=== PATIENT | female | born 1955 | race Caucasian/White ===

== ENCOUNTER → 2024-05-23 | Outpatient (CLI) | payer OTHER, MEDICARE, SELFPAY ==
--- NOTE | 2024-05-23 14:05 | DI.MG.S_ITS ---
BILATERAL DIGITAL SCREENING MAMMOGRAM 3D/2D WITH CAD: 05/23/2024 No prior exams were available for comparison. There are scattered areas of fibroglandular density (category b / 25%-50% glandular tissue). Current study was also evaluated with a Computer Aided Detection (CAD) system. There is an oval focal asymmetry in the right breast at 8 o'clock posterior depth. No other significant masses, calcifications, or other findings are seen in either breast. IMPRESSION: INCOMPLETE: NEED ADDITIONAL IMAGING EVALUATION The oval focal asymmetry in the right breast is indeterminate. Additional views with possible ultrasound are recommended. Based on the Tyrer Cuzick model (a risk assessment model) the patient's lifetime risk is 4.4% and her 10 year risk is 2.6%. According to the ACR, ACS, and NCCN guidelines, an annual breast MRI exam along with mammogram is recommended if the patient's lifetime risk is 20% or greater. This exam was interpreted at Station ID: [id number]. NOTE: For mammograms, a report in lay terms will be sent to the patient. Approximately 15% of breast malignancies will not be visualized mammographically. In the management of a palpable breast mass, a negative mammogram must not discourage biopsy of a clinically suspicious lesion. Electronically Signed By: Bala ramos/tam:06/09/2024 11:26:36 letter sent: Additional Imaging Needed ACR BI-RADS Category 0: Incomplete: Need Additional Imaging Evaluation
== END ==
LOC: MAMMO 14:04
PROVIDERS: PCP Family Medicine; Referring Provider Family Medicine; Visit Provider Family Medicine
DX: Z12.31 Encounter for screening mammogram for malignant neoplasm of breast (principal)
CPT/HCPCS: 77063; 77067

== ENCOUNTER → 2024-06-27 13:17 | Outpatient (CLI) | payer OTHER, SELFPAY ==
--- NOTE | 2024-06-27 | DI.US.S_ITS ---
LIMITED ULTRASOUND OF RIGHT BREAST: 06/27/2024 CLINICAL: Patient returns today to evaluate a focal asymmetry in the right breast. Comparison is made to exams dated: 06/27/2024 mammogram and 05/23/2024 mammogram - [facility]. Color flow and real-time ultrasound of the right breast 10 o'clock region were performed. [place] scale images of the real-time examination were reviewed. There is a benign 0.7 cm x 0.5 cm x 0.2 cm oval cyst in the right breast at 10 o'clock posterior depth 10 cm from the nipple. This oval cyst is anechoic with internal echoes. This correlates with mammography findings. Color flow imaging demonstrates that there is no vascularity present. IMPRESSION: BENIGN There is no sonographic evidence of malignancy. The 0.7 cm oval cyst in the right breast is benign. A 1 year screening mammogram is recommended. Exam findings were conveyed to the patient. This exam was interpreted at Station ID: [id number]. Electronically Signed By: Ivan Figueroa M.D. [facility] – [place], [place]/:06/27/2024 14:38:28 letter sent: Normal Exam ACR BI-RADS Category 2: Benign
--- NOTE | 2024-06-27 | DI.MG.S_ITS ---
UNILATERAL RIGHT DIGITAL DIAGNOSTIC MAMMOGRAM 3D/2D WITH ADDITIONAL VIEWS: 06/27/2024 CLINICAL: Additional evaluation requested from prior study. Comparison is made to exam dated: 05/23/2024 mammogram - [facility]. There are scattered areas of fibroglandular density (category b / 25%-50% glandular tissue). There is an oval focal asymmetry in the right breast at 9 o'clock posterior depth. No other significant masses or calcifications are seen in the breast. IMPRESSION: INCOMPLETE: NEED ADDITIONAL IMAGING EVALUATION The oval focal asymmetry in the right breast is indeterminate. A targeted ultrasound is recommended and will immediately follow. Based on the Tyrer Cuzick model (a risk assessment model) the patient's lifetime risk is 4.4% and her 10 year risk is 2.6%. According to the ACR, ACS, and NCCN guidelines, an annual breast MRI exam along with mammogram is recommended if the patient's lifetime risk is 20% or greater. This exam was interpreted at Station ID: [id number]. NOTE: For mammograms, a report in lay terms will be sent to the patient. Approximately 15% of breast malignancies will not be visualized mammographically. In the management of a palpable breast mass, a negative mammogram must not discourage biopsy of a clinically suspicious lesion. Electronically Signed By: Ivan Figueroa M.D. [facility] – [place]/:06/27/2024 13:49:40 Entry: - 06/28/2024 15:23:36 letter sent: Need Ultrasound ACR BI-RADS Category 0: Incomplete: Need Additional Imaging Evaluation
== END ==
LOC: MAMMO 13:18
PROVIDERS: PCP Family Medicine; Referring Provider Family Medicine; Visit Provider Family Medicine
DX: R92.8 Other abnormal and inconclusive findings on diagnostic imaging of breast (principal); N60.01 Solitary cyst of right breast
CPT/HCPCS: 76642; 77065; G0279

== ENCOUNTER → 2024-08-17 10:35 | Outpatient (CLI) | payer OTHER, SELFPAY ==
[2024-08-17 11:49] LABS: COVID-19 CEPHEID 4-PLEX PCR Negative (Negative); Influenza A - CEPHEID Flu A NEGATIVE (NEGATIVE); Influenza B - CEPHEID Flu B NEGATIVE (NEGATIVE); Respiratory Syncytial Virus Negative (Negative)
== END ==
PROVIDERS: PCP Family Medicine; Visit Provider Physician Assistant
DX: R05.1 Acute cough (principal); J02.9 Acute pharyngitis, unspecified
CPT/HCPCS: 0241U; 87070

== ENCOUNTER 2024-11-14 02:38 | Emergency (ER) | payer MEDICARE, OTHER, SELFPAY ==
[2024-11-14] VITALS (10 sets, daily range): BP systolic 155–217; BP diastolic 69–95; PULSE 57–94; RESP 11–35; TEMP 36.7; O2SAT 95–98; BMI 32.5
--- NOTE | 2024-11-14 02:46 | EKG_ITS ---
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
--- NOTE | 2024-11-14 02:59 | DI.RAD.S_ITS ---
PROCEDURE: XR CHEST 1V INDICATIONS: chest pain TECHNIQUE: One view of the chest was acquired. COMPARISON: None. FINDINGS: Surgical changes and devices: None. Lungs and pleura: Lungs are clear. No pleural effusions or pneumothorax. Mediastinum: Mediastinal contours appear normal. Heart size is enlarged. Bones and chest wall: No suspicious bony lesions. Overlying soft tissues appear unremarkable. IMPRESSION: No acute pulmonary process. Dictated by: Jen Carpio M.D. on 11/14/2024 at 7:29 Approved by: Jen Carpio M.D. on 11/14/2024 at 7:29
[2024-11-14 03:05] LABS: Add Manual Diff / Slide Review NO; Basophils Absolute Auto 100 /uL (0-100); Basophils Percent Auto 1.1 % (0-2); Eosinophils Absolute Auto 200 /uL (0-450); Eosinophils Percent Auto 3.8 % (2-4); Hemoglobin 11.9 g/dL (12.0-16.0); Lymphocytes Absolute Auto 2400 /uL (1100-4500); Lymphocytes Percent Auto 38.1 % (25-40); Mean Corpuscular Hemoglobin 29.7 PG (26-34); Mean Corpuscular Volume 90.3 fL (80-100); Monocytes Absolute Auto 400 /uL (0-900); Neutrophils Absolute Auto 3300 /uL (1500-7000); Platelet Count 236 X10^3/uL (150-400); Red Blood Cell Count 3.99 X10^6/uL (4.0-5.2); Red Cell Distribution Width 14.1 % (11.6-14.8); White Blood Cell Count 6.4 X10^3/uL (4.5-11.0)
[2024-11-14] MEDS: ASPIRIN 81 MG CHEW TAB 324 MG PO (03:12)
[2024-11-14 03:13] LABS: Alanine Aminotransferase 22 IU/L (<35); Albumin Globulin Ratio 1.4 (1.0-2.8); Alkaline Phosphatase 122 U/L (38-126); Aspartate Aminotransferase 31 IU/L (14-36); BUN Creatinine Ratio 23.4 (6-22); Bilirubin Total 0.4 mg/dL (0.2-1.3); Blood Urea Nitrogen 25 mg/dL (7-17); Calcium 8.6 mg/dL (8.4-10.2); Carbon Dioxide 24 mmol/L (22-32); Chloride 110 mmol/L (98-107); Creatine Kinase 66 U/L (30-135); Estimated Glomerular Filt Rate 56 mL/min (>60); Globulin 2.8 g/dL (1.7-4.1); Glucose 99 mg/dL (80-110); HEMOLYSIS < 15 (0-50); Lipase 121 U/L (23-300); Potassium 3.9 mmol/L (3.4-5.1); Sodium 140 mmol/L (137-145); Total Protein 6.8 g/dL (6.3-8.2)
[2024-11-14 03:25] LABS: Troponin I < 0.012 ng/mL (0.01-0.034)
--- NOTE | 2024-11-14 04:24 | ED.CHESTPAIN ---
HPI - Chest Pain General Chief Complaint: Chest Pain Stated Complaint: slight chest pain and left arm pain Time Seen by Provider: 11/14/24 02:50 Source: patient Mode of arrival: Ambulatory Limitations: no limitations History of Present Illness HPI narrative: Patient is a 69-year-old female history of atrial fibrillation on Eliquis and flecainide, hypothyroid hypertension GERD kidney mass kidney stones sending today with chest pain. Reports that yesterday she was noticing some sharp stabbing left-sided chest pain down the her breast. It came and went lasting only seconds. Tonight she has been noticing some left arm heaviness and achiness. Still having some sharp shooting pains in her chest as well no significant shortness of breath. Pain is not radiating. She has no prior history of coronary artery disease. Related Data Home Medications Medication Instructions Recorded Confirmed azelastine 137 mcg (0.1 %) nasal 1 spray intranasal BID 02/04/24 09/14/24 spray calcium carbonate 260 mg PO DAILY 02/04/24 09/14/24 cholecalciferol (vitamin D3) 50 50 mcg PO DAILY 02/04/24 09/14/24 mcg (2,000 unit) capsule inulin 2 gram chewable tablet g PO 02/04/24 09/14/24 (Fiber Gummies) multivitamin with minerals-folic tab PO 02/04/24 09/14/24 acid 200 mcg chewable tablet (Adult Multivitamin Gummies) Previous Rx's Medication Instructions Recorded lidocaine 4 % topical patch 1 patch topical BID PRN pain #10 ea 04/10/23 metoprolol succinate 25 mg 25 mg PO DAILY #90 tabs 06/13/24 tablet,extended release 24 hr sumatriptan succinate 50 mg tablet See Rx Instructions PO .COMPLEX 06/13/24 #90 tabs topiramate 25 mg capsule,extended 25 mg PO DAILY #90 caps 06/13/24 release 24 hr atorvastatin 20 mg tablet 20 mg PO BEDTIME #90 tabs 07/11/24 levothyroxine 88 mcg tablet 88 mcg PO DAILY #90 tabs 07/11/24 fluticasone propionate 50 1 spray intranasal DAILY #16 grams 08/17/24 mcg/actuation nasal spray,suspension (Flonase Allergy Relief) guaifenesin 1,200 mg tablet, 1,200 mg PO Q12H #30 tabs 08/17/24 extended release 12 hr lisinopril 40 mg tablet 40 mg PO DAILY #90 tabs 11/07/24 omeprazole 40 mg capsule,delayed 40 mg PO DAILY #90 caps 11/07/24 release paroxetine HCl 20 mg tablet 20 mg PO DAILY #90 tabs 11/07/24 trazodone 50 mg tablet 50 mg PO BEDTIME PRN insomnia #90 11/07/24 tabs apixaban 5 mg tablet (Eliquis) 5 mg PO BID #180 tabs 11/10/24 flecainide 50 mg tablet 50 mg PO Q12H #180 tabs 11/10/24 Allergies Allergy/AdvReac Type Severity Reaction Status Date / Time No Known Drug Allergies Allergy Unverified 09/14/24 12:53 Patient History Social History Smoking Status: Never smoker Smoking Status: Never smoker Exam Initial Vital Signs Initial Vital Signs: Vital Signs Temperature 98.1 F 11/14/24 02:52 Pulse Rate 62 11/14/24 02:52 Respiratory Rate 19 11/14/24 02:52 Blood Pressure 217/95 H 11/14/24 02:52 Pulse Oximetry 98 11/14/24 02:52 Oxygen Delivery Method Room Air 11/14/24 02:52 GENERAL: Well-appearing, well-nourished and in no acute distress. HEENT: Head atraumatic,EOMI, pupils reactive, face symmetric, moist mucous membranes CARDIOVASCULAR: Regular rate and rhythm without murmurs, rubs or gallops. RESPIRATORY: Breath sounds equal bilaterally, no wheezes rales or rhonchi. ABDOMEN: Soft, nontender. Normoactive bowel sounds all 4 quadrants. No guarding or rebound. EXTREMITIES: Normal range of motion, no clubbing or edema. Neurovascularly intact NEUROLOGICAL: Alert and oriented x4.Normal gait and speech. Cranial nerves II through XII grossly intact. SKIN: Warm, dry, no laceration, no petechiae, no rashes or lesions. Scores HEART Score Heart Score history: Slightly Suspicious Heart Score EKG: Normal Heart Score Age: > or = 65 years old Heart Score risk factors: 1-2 risk factors Heart Score troponin: < or = to normal limit Heart Score Total: 3 Course Orders Ordered: ED Orders 11/14/24 02:47 EKG-12 Lead Stat 11/14/24 02:54 Complete Blood Count AUTO DIFF Stat Comprehensive Metabolic Panel Stat Lipase Stat Troponin & CK Cardiac Panel Stat 11/14/24 02:59 XR chest 1V Stat EKG-12 Lead Stat 11/14/24 04:55 Trop I [Troponin I] Stat 11/14/24 05:00 EKG-12 Lead Stat 11/14/24 05:04 EKG-12 Lead Routine Discontinued Medications Aspirin (Aspirin 81 Mg Chew Tab) 324 mg PO NOW ONE Stop: 11/14/24 03:00 Last Admin: 11/14/24 03:12 Dose: 324 mg Documented By: ELIU Vital Signs Vital signs: Vital Signs - 8 hr 11/14/24 02:52 11/14/24 03:00 11/14/24 03:01 Temperature 98.1 F Pulse Rate 62 58 L 59 L Respiratory Rate 19 11 L 13 Blood Pressure 217/95 H Pulse Oximetry 98 98 98 Oxygen Delivery Method Room Air 11/14/24 03:01 11/14/24 03:30 11/14/24 03:46 Temperature Pulse Rate 94 H 61 Respiratory Rate 35 H 11 L Blood Pressure 207/80 H Pulse Oximetry 97 Oxygen Delivery Method 11/14/24 03:46 11/14/24 04:00 11/14/24 04:01 Temperature Pulse Rate 57 L Respiratory Rate 16 Blood Pressure 183/85 H 179/77 H Pulse Oximetry 96 Oxygen Delivery Method Room Air 11/14/24 04:01 11/14/24 04:30 11/14/24 04:31 Temperature Pulse Rate 57 L 58 L 57 L Respiratory Rate 13 13 14 Blood Pressure Pulse Oximetry 97 95 95 Oxygen Delivery Method Room Air Room Air 11/14/24 04:31 11/14/24 05:00 11/14/24 05:00 Temperature Pulse Rate 59 L Respiratory Rate 19 Blood Pressure 155/69 H 171/84 H Pulse Oximetry 96 Oxygen Delivery Method MDM - Chest Pain Lab Data 11/14/24 02:54 11/14/24 02:54 Labs: Lab Results 11/14/24 11/14/24 Range/Units 02:54 04:55 WBC 6.4 (4.5-11.0) X10^3/uL RBC 3.99 L (4.0-5.2) X10^6/uL Hgb 11.9 L (12.0-16.0) g/dL Hct 36.0 (36-46) % MCV 90.3 (80-100) fL MCH 29.7 (26-34) PG MCHC 33.0 (30-36) % RDW 14.1 (11.6-14.8) % Plt Count 236 (150-400) X10^3/uL Neut % (Auto) 51.0 (50-75) % Lymph % (Auto) 38.1 (25-40) % [place] % (Auto) 6.0 (3-14) % Eos % (Auto) 3.8 (2-4) % Baso % (Auto) 1.1 (0-2) % Neut # (Auto) 3300 (9681-2221) /uL Lymph # (Auto) 2400 (8154-3647) /uL [place] # (Auto) 400 (0-900) /uL Eos # (Auto) 200 (0-450) /uL Baso # (Auto) 100 (0-100) /uL Sodium 140 (137-145) mmol/L Potassium 3.9 (3.4-5.1) mmol/L Chloride 110 H (98-107) mmol/L Carbon Dioxide 24 (22-32) mmol/L BUN 25 H (7-17) mg/dL Creatinine 1.07 H (0.52-1.04) mg/dL Estimated GFR 56 L (>60) mL/min BUN/Creatinine Ratio 23.4 H (6-22) Glucose 99 (80-110) mg/dL Calcium 8.6 (8.4-10.2) mg/dL Total Bilirubin 0.4 (0.2-1.3) mg/dL AST 31 (14-36) IU/L ALT 22 (<35) IU/L Alkaline Phosphatase 122 (38-126) U/L Total Creatine Kinase 66 (30-135) U/L Troponin I < 0.012 < 0.012 (0.01-0.034) ng/mL Total Protein 6.8 (6.3-8.2) g/dL Albumin 4.0 (3.5-5.0) g/dL Globulin 2.8 (1.7-4.1) g/dL Albumin/Globulin Ratio 1.4 (1.0-2.8) Lipase 121 (23-300) U/L Imaging Data Chest x-ray: Radiologist's Impression: Preliminary report no acute finding ECG Data Attestation: I personally reviewed and interpreted this ECG as follows: Prior ECG tracings: not available for review Interpretation: Normal sinus rhythm rate 61 TX interval 198 QRS 114 QTC 434 T-wave inversion early Sinus rhythm rate 60 T-wave inversion noted in lead 3 no acute changes MDM Narrative Medical decision making narrative: MDM CC: Chest pain Complicating co-morbidities: Paroxysmal atrial fibrillation on Eliquis and flecainide hypertension Corroborating data: [ ] Data collected from: [ ] Medical records reviewed: none Differential considered: Acute coronary syndrome atrial fibrillation Exam documented above, pertinent findings include: Awake alert 69-year-old female no acute distress pain is nonreproducible Lab Test results independently reviewed as above. Pertinent findings: Troponin negative x 2 WBC 6.4 hemoglobin 11.9 hematocrit 36 Sodium 140 potassium 3.9 chloride 110 carbon dioxide 24 BUN 25 creatinine 1.0 Liver enzymes bilirubin within normal limits Independently reviewed EKG as above No priors to compare Imaging studies independently reviewed: no acute cardiopulmonary process Consultations: [ ] Treatments: none Re-evaluations: Patient continues to have intermittent chest pain lasting 1-2 minutes and resolving. Discussion: Patient 69-year-old female presenting today with chest. She was having sharp shooting pain lasting seconds and now it is her left arm that she feels some heaviness lasting a minute or 2. No significant shortness of breath. She is 2- troponins and negative chest x-ray. No prior EKGs to compare she has no acute ischemia. At this time recommend outpatient follow-up and further cardiac evaluation and return as needed Discharge Plan Departure Patient Disposition: Home Clinical Impression: Atypical chest pain Instructions: DI for Atypical Chest Pain Activity Restrictions/Additional Instructions: *You have been diagnosed with atypical chest *What to do: At this time your chest pain is atypical. I do recommend that you have an outpatient cardiac evaluation such as echocardiogram and stress test. We are unable to do these things in the emergency department *Continue to take medications as directed *Follow up with your primary care provider in 2-3 days or call [phone] *Return to ER if you should have increasing chest discomfort shortness of breath arm pain jaw pain back pain or any new, worsening or concerning symptoms Prescriptions: No Action lidocaine 4 % adhesive patch,medicated 1 patch topical BID PRN (Reason: pain) Qty: 10 0RF guaifenesin 1,200 mg tablet extended release 12hr 1,200 mg PO Q12H Qty: 30 0RF fluticasone propionate [Flonase Allergy Relief] 50 mcg/actuation spray,suspension 1 spray intranasal DAILY Qty: 16 2RF Rx Instructions: administer into each nostril metoprolol succinate 25 mg tablet extended release 24 hr 25 mg PO DAILY Qty: 90 3RF topiramate 25 mg capsule,extended release 24hr 25 mg PO DAILY Qty: 90 3RF sumatriptan succinate 50 mg tablet See Rx Instructions PO .COMPLEX Qty: 90 3RF Rx Instructions: take 1 tab at onset of headache; if no relief may repeat 1 tab after at least 2 hrs; max = 4 tabs/24 hr PO levothyroxine 88 mcg tablet 88 mcg PO DAILY Qty: 90 3RF atorvastatin 20 mg tablet 20 mg PO BEDTIME Qty: 90 3RF paroxetine HCl 20 mg tablet 20 mg PO DAILY Qty: 90 0RF omeprazole 40 mg capsule,delayed release(DR/EC) 40 mg PO DAILY Qty: 90 0RF lisinopril 40 mg tablet 40 mg PO DAILY Qty: 90 0RF trazodone 50 mg tablet 50 mg PO BEDTIME PRN (Reason: insomnia) Qty: 90 0RF flecainide 50 mg tablet 50 mg PO Q12H Qty: 180 3RF Eliquis 5 mg tablet 5 mg PO BID Qty: 180 3RF azelastine 137 mcg (0.1 %) aerosol,spray 1 spray intranasal BID Rx Instructions: administer into each nostril cholecalciferol (vitamin D3) 50 mcg (2,000 unit) capsule 50 mcg PO DAILY calcium carbonate 260 mg calcium (648 mg) tablet 260 mg PO DAILY multivit with min-folic acid [Adult Multivitamin Gummies] 200 mcg tablet,chewable PO Fiber Gummies 2 gram tablet,chewable PO Referrals: Haylee Roberts DO [Primary Care Provider] - Stand Alone Forms: Patient Portal/API/Survey
--- NOTE | 2024-11-14 05:04 | EKG_ITS ---
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
[2024-11-14 05:27] LABS: Troponin I < 0.012 ng/mL (0.01-0.034)
== END 2024-11-14 05:53 | disposition home or self-care (01) ==
PROVIDERS: Emergency Provider Emergency Medicine; PCP Family Medicine
DX: R07.89 Other chest pain (principal); I49.8 Other specified cardiac arrhythmias
CPT/HCPCS: 36415; 71045; 80053; 82550; 83690; 84484; 85025; 93005; 99284

== ENCOUNTER → 2024-11-23 10:59 | Outpatient (CLI) | payer MEDICARE, OTHER, SELFPAY ==
[2024-11-23 12:41] LABS: TSH w/ Reflex to FT4 9.49 uIU/mL (0.47-4.68)
[2024-11-23 13:37] LABS: Free T4, Direct Thyroxine 1.22 ng/dL (0.78-2.19)
== END ==
PROVIDERS: PCP Family Medicine; Referring Provider Family Medicine; Visit Provider Family Medicine
DX: E03.9 Hypothyroidism, unspecified (principal); R07.89 Other chest pain
CPT/HCPCS: 36415; 84439; 84443

== ENCOUNTER → 2024-11-30 08:07 | Outpatient (CLI) | payer OTHER, SELFPAY ==
--- NOTE | 2024-11-30 18:01 | DI.NM.S_ITS ---
DATE OF SERVICE: 11/30/2024 PROCEDURE: Exercise stress test. INDICATIONS: Chest pain, hypertension, hyperlipidemia. CARDIAC STRESS: The patient underwent exercise stress test under the supervision of an attending staff. She walked on Samuel protocol for 4 minutes and 27 seconds and the patient achieved maximum heart rate 118, which was 78% of target heart rate. Resting blood pressure 150/68 and peak blood pressure 180/98 mmHg. Baseline rhythm sinus with some ST flattening in inferolateral leads. During stress, significant artifacts. Difficult to comment upon ST-segment. However, in the immediate recovery, there was no significant ST depression. Then in recovery, the patient developed PVCs including ventricular quadrigeminy pattern which lasted for short duration. No ventricular tachycardia. In 3 minutes into the recovery, there was 0.[address] depression in inferior leads and leads V5 to V6, which got subsided in 5 minutes in recovery. The patient developed dyspnea and pleuritic type of chest pain during exercise, which got improved in recovery. XUAN positive 31%, seven METS of workload. CONCLUSION: This is a submaximal exercise stress test. The patient achieved 78% of target heart rate. There is 0.[address]-segment depression in inferior leads and leads V5 and V6 , which appeared around 3 minutes into the recovery and subsided in 5 minutes. Stress EKG was un interpretable. Frequent PVCs in recovery with ventricular quadrigeminy pattern without any ventricular tachycardia. The patient had pleuritic type of chest pain and dyspnea during exercise. This is an inconclusive study for CAD diagnosis and risk stratification. Please consider repeating stress test with imaging modality like exercise perfusion study or exercise stress echo. Ellie Gonzales - JUDITH/concetta/JORDI doc#: [id number]/job#: [id number] dd: 11/30/2024 17:07:00 dt: 11/30/2024 17:35:00 DICTATING MD/COPIES TO: [place] MD COPIES MNE: MINDI;
== END ==
PROVIDERS: PCP Family Medicine; Referring Provider Family Medicine; Visit Provider Family Medicine
DX: R07.89 Other chest pain (principal)
CPT/HCPCS: 93017

== ENCOUNTER → 2025-01-17 15:04 | Outpatient (CLI) | payer OTHER, SELFPAY ==
[2025-01-17 15:43] LABS: Estimated Glomerular Filt Rate 55 mL/min (>60)
[2025-01-17 16:41] LABS: Thyroid Stimulating Hormone 1.79 uIU/mL (0.47-4.68)
== END ==
LOC: LAB 15:04
PROVIDERS: Radiology Diagnostic Radiology; PCP Family Medicine; Referring Provider Family Medicine; Visit Provider Family Medicine
DX: R31.29 Other microscopic hematuria (principal); E03.9 Hypothyroidism, unspecified
CPT/HCPCS: 36415; 82565; 84443

== ENCOUNTER → 2025-02-09 13:49 | Outpatient (CLI) | payer OTHER, SELFPAY ==
[2025-02-09 14:52] LABS: Estimated Glomerular Filt Rate 52 mL/min (>60)
== END ==
PROVIDERS: Family Provider Family Medicine; PCP Family Medicine; Visit Provider Radiology Diagnostic Radiology
DX: N28.89 Other specified disorders of kidney and ureter (principal)
CPT/HCPCS: 36415; 82565

== ENCOUNTER → 2025-02-12 11:08 | Outpatient (CLI) | payer OTHER, SELFPAY ==
--- NOTE | 2025-02-12 11:10 | DI.CT.S_ITS ---
PROCEDURE: CT ABDOMEN RENAL PROTOCOL INDICATIONS: hx rt renal mass,disorders of kidney and ureter TECHNIQUE: Optional 5 mm thick noncontrast images acquired from the diaphragm to the iliac crests. After the administration of intravenous contrast, 5 mm thick images again acquired from the diaphragm to the iliac crests in the arterial and urographic phases. 5 mm thick coronal and sagittal reformats were then acquired. For radiation dose reduction, the following was used: automated exposure control, adjustment of mA and/or kV according to patient size. COMPARISON: Outside Facility, CT, CT IVP A/P W/WO, 02/29/2024, 9:17. FINDINGS: Image quality: Diagnostic. Kidneys and Ureters: Posttreatment changes on the posterior margin of the right kidney. The treatment bed has a targetoid appearance, with central enhancing soft tissue . This region measures approximately 1.0 x 1.4 centimeter. A couple of nonobstructing right-sided nephrolithiasis, largest measuring 7 millimeter, the remainder of punctate. Small burden of punctate, nonobstructing left-sided nephrolithiasis. OTHER: Lower chest: Unremarkable. Liver: No solid mass. Gallbladder: Absent. Biliary ducts: No biliary dilation. Pancreas: No ductal dilation. Spleen: Size is within normal limits. Adrenal Glands: No adrenal nodules. Stomach and Bowel: Normal colonic caliber, without significant wall thickening. Gastric bypass. Peritoneum: No abnormal intraperitoneal fluid. No free air. Ventral Wall: No hernia. Abdominal Nodes: No retroperitoneal or mesenteric adenopathy by size criteria. Vessels: Aorta and inferior vena cava are normal in size. 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 Bones: No aggressive osseous abnormality. IMPRESSION: Posttreatment changes along the posterior margin of the right kidney, normal in appearance status post cryoablation, with a central enhancing scar. Stable 1.3 centimeter splenic artery aneurysm. Yearly follow-up with CTA is recommended per consensus guidelines. Dictated by: Bear [place] M.D. on 02/12/2025 at 14:30 Approved by: Bear [place] M.D. on 02/12/2025 at 14:35
== END ==
PROVIDERS: PCP Family Medicine; Referring Provider Nurse Practitioner Adult Health; Visit Provider Nurse Practitioner Adult Health
DX: N28.89 Other specified disorders of kidney and ureter (principal); I72.8 Aneurysm of other specified arteries; Z98.890 Other specified postprocedural states
CPT/HCPCS: 74170; Q9967

== ENCOUNTER → 2025-02-15 13:53 | Outpatient (CLI) | payer OTHER, SELFPAY ==
--- NOTE | 2025-02-15 13:55 | DI.ECHO.S_ITS ---
[place] [facility] : : [address] : : [place] : : [id number] : : Phone: [phone] Echocardiogram Report + + :Name: ASHISH BARAKAT Study Date: 02/15/2025 Height: 64 in : :[facility] ReadingLocation: Weight: 190 lb : : Gender: Female BSA: 1.9 m2 : :: 1955 Age: 69 yrs BP: 176/111 mmHg: :Reason For Study: HEART FAILURE : :Ordering Physician: MAREK BRENNAN Performed By: Robbin Reeves : :Referring: MAREK BRENNAN : + + Interpretation Summary 1. The left ventricular contractility is normal. Estimated ejection fraction is greater than 55% with no segmental wall motion abnormalities. Mild concentric LVH. Grade 2 diastolic dysfunction. 2. The right ventricle contractility is normal. 3. Biatrial enlargement noted. The right and left ventricular cavities are of normal size. 4. Trace to mild tricuspid regurgitation with estimated pulmonary systolic artery pressures of 36 mmHg. 5. Trace to mild mitral regurgitation. 6. No obvious intracardiac shunts. 7. No obvious intracardiac masses nor thrombi. 8. No hemodynamically significant pericardial effusion. 9. Low right-sided filling pressures. Conclusion: Normal biventricular systolic function with grade 2 diastolic dysfunction and no significant valvular abnormalities. Procedure: A two-dimensional transthoracic echocardiogram with color flow and Doppler was performed. The study quality was technically good. There is no prior echocardiogram noted for this patient. The patient was in normal sinus rhythm during the exam. Left Ventricle: The left ventricle is normal in size. There is normal left ventricular wall thickness. There is no ventricular septal defect visualized. The ejection fraction is estimated to be 55-60%. There are no focal wall motion abnormalities. Right Ventricle: The right ventricle is normal in size and function. Atria: The left atrium is moderately dilated. The right atrium is moderately dilated. There is no Doppler evidence for an interatrial shunt. Mitral Valve: The mitral valve leaflets appear normal. There is no evidence of stenosis, fluttering, or prolapse. There is trace mitral regurgitation. Aortic Valve: The aortic valve is trileaflet. The aortic valve opens well. No aortic regurgitation is present. Tricuspid Valve: The tricuspid valve leaflets are thin and pliable. There is mild tricuspid regurgitation. The right ventricular systolic pressure is estimated to be at least 36 mmHg based on an estimated right atrial pressure of 3 mm Hg. Pulmonic Valve: The pulmonic valve is not well visualized. There is no pulmonic valvular regurgitation. Great Vessels: The aortic root is normal size. The ascending aorta could not be visualized. The pulmonary artery is normal size. The IVC is of normal diameter and collapses greater than 50% with a sniff. This suggests a low right atrial pressure of 3 mm Hg. Pericardium/ Pleura There is no pericardial effusion. There is no pleural effusion. MMode/2D Measurements & Calculations LVIDd: 5.0 cm LVOT diam: 2.3 cm LVIDs: 3.8 cm Ao root diam: 3.1 cm FS: 24.7 % EPSS: 1.1 cm IVSd: 1.1 cm LVPWd: 0.96 cm LV murdock. diameter/BSA (cm/m^2): 2.6 LV sys. diameter/BSA (cm/m^2): 2.0 LA A2 area: 22.6 cm2 RA long axis: 6.0 cm LA A4 area: 24.7 cm2 RA area: 20.1 cm2 LA length (vol): 5.9 cm RA vol: 57.3 ml LA vol: 79.9 ml RA : 29.9 ml/m2 LA vol index: 41.7 ml/m2 IVC diam: 1.1 cm RVD1 (basal): 3.6 cm RVD2 (mid): 2.5 cm TAPSE: 2.3 cm Doppler Measurements & Calculations Ao V2 max: 151.6 cm/sec LVOT Max Ayush: 78.1 cm/sec Ao V2 mean: 115.1 cm/sec LV V1 max P.4 mmHg Ao max P.2 mmHg LV V1 VTI: 15.8 cm Ao mean P.6 mmHg MIGUEL(I,D): 1.8 cm2 Ao V2 VTI: 35.5 cm MIGUEL(V,D): 2.1 cm2 sev ratio: 0.45 MIGUEL indexed to BSA (cm^2/m^2): 0.95 MV E max ayush: 62.0 cm/sec TR max ayush: 288.2 cm/sec MV A max ayush: 56.5 cm/sec TR max P.2 mmHg MV E/A: 1.1 PA V2 max: 78.5 cm/sec Med Peak E' Ayush: 4.1 cm/sec PA V2 mean: 57.7 cm/sec E/E' med: 15.3 PA mean P.5 mmHg Lat Peak E' Ayush: 8.0 cm/sec PA pr(Accel): 36.2 mmHg E/E' lat: 7.7 E/e' average: 11.5 MV dec time: 0.25 sec [facility] 64.5 ml Reading Physician:SAMMI
== END ==
PROVIDERS: Family Provider Family Medicine; PCP Family Medicine; Referring Provider Internal Medicine; Visit Provider Internal Medicine
DX: I07.1 Rheumatic tricuspid insufficiency (principal); I50.22 Chronic systolic (congestive) heart failure
CPT/HCPCS: 93306

== ENCOUNTER → 2025-03-28 13:56 | Outpatient (CLI) | payer OTHER, SELFPAY | PROVIDERS: PCP Family Medicine; Visit Provider Urology | DX: C64.9 Malignant neoplasm of unspecified kidney, except renal pelvis (principal); R31.0 Gross hematuria; R39.9 Unspecified symptoms and signs involving the genitourinary system | CPT/HCPCS: 81002; 87086; 99213 ==

== ENCOUNTER → 2025-06-11 11:15 | Outpatient (CLI) | payer MEDICARE, OTHER, SELFPAY ==
[2025-06-11 12:57] LABS: Blood Urea Nitrogen 22 mg/dL (7-17); Calcium 8.8 mg/dL (8.4-10.2); Carbon Dioxide 23 mmol/L (22-32); Chloride 110 mmol/L (98-107); Estimated Glomerular Filt Rate > 60 mL/min (>60); Glucose 89 mg/dL (70-99); HEMOLYSIS < 15 (0-50); Potassium 3.9 mmol/L (3.4-5.1); Sodium 142 mmol/L (137-145)
== END ==
PROVIDERS: PCP Family Medicine; Referring Provider Internal Medicine; Visit Provider Internal Medicine
DX: I50.22 Chronic systolic (congestive) heart failure (principal)
CPT/HCPCS: 36415; 80048

== ENCOUNTER → 2025-06-28 12:44 | Outpatient (CLI) | payer MEDICARE, OTHER, SELFPAY ==
--- NOTE | 2025-06-28 12:45 | DI.MG.S_ITS ---
MM screening mammo BI: 06/28/2025. BI-RADS: 1 CLINICAL: 70-year old female for bilateral screening mammogram. Tyrer-Cuzick lifetime risk of 4.9%. No personal or first-degree family history of breast cancer. PRIOR EXAMS 05/23/2024, outside films 03/04/2023, 10/23/2020, and 01/23/2019. MAMMOGRAPHY TECHNIQUE: 2D and 3D (tomosynthesis) digital mammographic views obtained, with additional images as needed for full coverage. Current study was also evaluated with a Computer Aided Detection (CAD) system. DENSITY B. There are scattered areas of fibroglandular density. MAMMOGRAPHY FINDINGS Bilateral: No suspicious mass, asymmetry, microcalcification, or other abnormality seen. IMPRESSION: * No evidence of malignancy. RECOMMENDATIONS Bilateral * Annual screening mammography. OVERALL ASSESSMENT CATEGORY BI-RADS-1: Negative. [employer] recommends annual screening mammography beginning at age 40 for women with average risk of breast cancer. ELECTRONICALLY SIGNED: Radha Barrios M.D. on 06/28/2025 at 04:58:21 PM PT Interpreting Station ID: [id number]
== END ==
LOC: MAMMO 12:44
PROVIDERS: PCP Family Medicine; Referring Provider Family Medicine; Visit Provider Family Medicine
DX: Z12.31 Encounter for screening mammogram for malignant neoplasm of breast (principal)
CPT/HCPCS: 77063; 77067

== ENCOUNTER → 2025-06-29 07:40 | Outpatient (CLI) | payer MEDICARE, OTHER, SELFPAY ==
--- NOTE | 2025-06-29 07:43 | DI.NM.S_ITS ---
PROCEDURE: NM LEX PERF SPECT R&S PHARM Rest and pharmacological stress myocardial perfusion SPECT with gated imaging and ejection fraction RADIOPHARMACEUTICAL: 25.6 mCi Tc-99m tetrafosmin IV at rest and 25.1 mCi Tc-99m tetrafosmin IV at peak effect of pharmacological stress. [id number] was performed. INDICATIONS: Abnormal stress test TECHNIQUE: Radiopharmaceutical was injected at peak stress test, and also at rest. SPECT images were obtained. SPECT myocardial perfusion images were displayed in short axis, horizontal long axis, and vertical long axis views. Gated images were reviewed using [employer] software. COMPARISON: None. CARDIAC STRESS: A pharmacologic stress test was performed under the supervision of an attending staff, using an infusion of regadenoson 0.4 mg IV. Hemodynamic data: There is normal blood pressure and heart rate response to pharmacologic stress. Symptoms: The patient denied anginal chest pain. Aminophylline: None. EKG: No diagnostic changes of ischemia; rare PVCs. FINDINGS: Raw data: There is good myocardial uptake of radiotracer. No significant motion artifacts. Left ventricle function: Gated images demonstrate normal left ventricular wall thickening. No segmental wall motion abnormalities. No transient ischemic dilation; TID is 1.23 (normal less than 1.3). Left ventricle resting end diastolic volume is 121 mL. Left ventricle stress ejection fraction is 68%; normal range is above 45%. Myocardial perfusion: There is normal distribution of activity in the right and left ventricular myocardium. No fixed or reversible perfusion defects. IMPRESSION: Low risk study. No evidence of pharmacologic induced ischemia or scar. Top normal LV size based on calculated end-diastolic volume with normal function. Dictated by: Emilia White D.O. on 07/09/2025 at 16:37 Approved by: Emilia White D.O. on 07/09/2025 at 16:39
== END ==
LOC: NUCM 07:41
PROVIDERS: PCP Family Medicine; Referring Provider Family Medicine; Visit Provider Internal Medicine
DX: R94.39 Abnormal result of other cardiovascular function study (principal)
CPT/HCPCS: 78452; 93017; A9502; J2785

== ENCOUNTER 2025-07-25 22:16 | Emergency (ER) | payer MEDICARE, OTHER, SELFPAY ==
--- NOTE | 2025-07-25 22:24 | EKG_ITS ---
[id number] [address] Test Date: 2025-07-25 Pat Name: Ellie Gonzales Department: [facility] Room: Gender: Female [employer] Salesperson: LESTER CORRAL : 1955 Requested By: Order Number: [id number] Reading MD: Marquis Gould MD Measurements Intervals [place] Rate: 66 P: 83 MS: 160 QRS: -4 QRSD: 98 T: 4 QT: 446 QTc: 467 Interpretive Statements Normal sinus rhythm Nonspecific ST abnormality Electronically Signed On 07-26-2025 7:29:07 PST by Marquis Gould MD
[2025-07-25 22:25] VITALS: BP 182/123; PULSE 68; RESP 18; TEMP 36.6; O2SAT 96; BMI 33.7
--- NOTE | 2025-07-25 22:26 | DI.RAD.S_ITS ---
PROCEDURE: XR CHEST 1V INDICATIONS: chest pain TECHNIQUE: One view of the chest was acquired. COMPARISON: [facility], CR, XR CHEST 1V, 11/14/2024, 3:03. FINDINGS: Surgical changes and devices: None. Lungs and pleura: Lungs are clear. No pleural effusions or pneumothorax. Mediastinum: Mediastinal contours appear normal. Heart size is enlarged. Bones and chest wall: No suspicious bony lesions. Overlying soft tissues appear unremarkable. IMPRESSION: No acute cardiopulmonary abnormality is seen. Dictated by: Manuel Pak M.D. on 07/25/2025 at 23:08 Approved by: Manuel Pak M.D. on 07/25/2025 at 23:09
--- NOTE | 2025-07-25 22:35 | ED.CHESTPAIN ---
HPI - Chest Pain General Chief Complaint: Chest Pain Stated Complaint: chest pain/Lt arm+leg Time Seen by Provider: 07/25/25 22:19 Source: patient Mode of arrival: Ambulatory Limitations: no limitations History of Present Illness HPI narrative: Patient is 70-year-old female history of hypertension hyperlipidemia, atrial fibrillation on flecainide and Eliquis, heart failure with mid-range ejection fraction, renal cell carcinoma, presenting today with chest pain. She reports that she had sharp shooting pain around 1:00 [address]. She said they only last a 2nd or so does not seem to be radiating. However they have persisted throughout the day. This evening she developed some aching in her left arm and left leg. She says that she has never had this before no his known history of coronary artery disease. She says that she did recently have a stress test here at this hospital which she reports is normal, and this is confirmed it was done in 06/29/2025. She denies any significant shortness of breath. She has no peripheral swelling or edema. She says chest discomfort now is minimal. No fever chills or cough. She has no abdominal pain nausea or vomiting. She has been followed by Dr. Brennan and Reagan MASTERSON, for ongoing hypertension and congestive heart failure management she was actually seen and evaluated by them on 07/23/2025, note is as follows. She has had ongoing hypertension despite multiple medication increases, not get started on Jardiance though it was discussed in prior notes. Now taking 25 mg of carvedilol twice daily lisinopril 40, Aldactone 25 On 06/21/2025 carvedilol was increased, it was later increased again by phone and started on Jardiance. MPS 06/29/2025 normal perfusion, low risk study no evidence of pharmacologic induced ischemia or scar Echo02/15/2025 normal biventricular systolic function with grade 2 diastolic dysfunction and no significant valvular abnormalities Related Data Home Medications ?Medication ?Instructions ?Recorded ?Confirmed calcium carbonate 260 mg PO DAILY 02/04/24 03/28/25 cholecalciferol (vitamin D3) 50 50 mcg PO DAILY 02/04/24 03/28/25 mcg (2,000 unit) capsule multivitamin with minerals-folic tab PO 02/04/24 03/28/25 acid 200 mcg chewable tablet (Adult Multivitamin Gummies) azelastine 137 mcg (0.1 %) nasal 1 spray intranasal BID PRN 01/31/25 03/28/25 spray fluticasone propionate 50 1 spray intranasal DAILY PRN 01/31/25 03/28/25 mcg/actuation nasal spray,suspension (Flonase Allergy Relief) inulin 2 gram chewable tablet 2 g PO DAILY 01/31/25 03/28/25 (Fiber Gummies) Previous Rx's ?Medication ?Instructions ?Recorded lidocaine 4 % topical patch 1 patch topical BID PRN pain #10 ea 04/10/23 apixaban 5 mg tablet (Eliquis) 5 mg PO BID #180 tabs 11/10/24 methocarbamol 500 mg tablet 500 mg PO BID PRN muscle spasm #15 01/31/25 tabs levothyroxine 100 mcg tablet 100 mcg PO DAILY #90 tabs 02/13/25 lisinopril 40 mg tablet 40 mg PO DAILY #90 tabs 02/13/25 omeprazole 40 mg capsule,delayed 40 mg PO DAILY #90 caps 02/13/25 release paroxetine HCl 20 mg tablet 20 mg PO DAILY #90 tabs 02/13/25 sumatriptan succinate 50 mg tablet See Rx Instructions PO .COMPLEX 03/12/25 #90 tabs trazodone 50 mg tablet 50 mg PO BEDTIME PRN insomnia #90 03/12/25 tabs topiramate 25 mg capsule,extended 25 mg PO DAILY #90 caps 05/22/25 release 24 hr atorvastatin 20 mg tablet 20 mg PO BEDTIME #90 tabs 07/11/25 Allergies Allergy/AdvReac Type Severity Reaction Status Date / Time No Known Drug Allergies Allergy Verified 07/25/25 22:25 Patient History Social History Smoking Status: Never smoker Smoking Status: Never smoker Exam Initial Vital Signs Initial Vital Signs: Vital Signs Temperature 97.8 F 07/25/25 22:25 Pulse Rate 68 07/25/25 22:25 Respiratory Rate 18 07/25/25 22:25 Blood Pressure 182/123 H 07/25/25 22:25 Pulse Oximetry 96 07/25/25 22:25 Oxygen Delivery Method Room Air 07/25/25 22:25 GENERAL: Alert well-appearing 70-year-old female and in no acute distress. HEENT: Head atraumatic,EOMI, pupils reactive, face symmetric, moist mucous membranes CARDIOVASCULAR: Regular rate and rhythm without murmurs, rubs or gallops. RESPIRATORY: Breath sounds equal bilaterally, no wheezes rales or rhonchi. ABDOMEN: Soft, nontender. Normoactive bowel sounds all 4 quadrants. No guarding or rebound. EXTREMITIES: Normal range of motion, no clubbing or edema. Neurovascularly intact NEUROLOGICAL: Alert and oriented x4.Normal gait and speech. Cranial nerves II through XII grossly intact. SKIN: Warm, dry, no laceration, no petechiae, no rashes or lesions. Scores HEART Score Heart Score history: Slightly Suspicious Heart Score EKG: Normal Heart Score Age: > or = 65 years old Heart Score risk factors: 1-2 risk factors Heart Score troponin: < or = to normal limit Heart Score Total: 3 Course Orders Ordered: ED Orders 07/25/25 22:20 EKG-12 Lead Stat 07/25/25 22:26 XR chest 1V Stat 07/25/25 22:30 Complete Blood Count AUTO DIFF Stat Comprehensive Metabolic Panel Stat Lipase Stat Magnesium Stat NT-proBNP (BNP-Adult 18+) Stat Troponin I Stat 07/26/25 00:26 Troponin I Stat Vital Signs Vital signs: Vital Signs - 8 hr 07/25/25 22:25 07/25/25 22:46 07/25/25 23:00 Temperature 97.8 F Pulse Rate 68 60 Respiratory Rate 18 24 Blood Pressure 182/123 H 178/83 H Pulse Oximetry 96 96 Oxygen Delivery Method Room Air 07/25/25 23:00 07/26/25 00:00 07/26/25 00:00 Temperature Pulse Rate 63 61 Respiratory Rate 19 10 L Blood Pressure 140/67 Pulse Oximetry 97 95 Oxygen Delivery Method Room Air 07/26/25 00:30 07/26/25 00:30 07/26/25 01:00 Temperature Pulse Rate 61 61 Respiratory Rate 20 15 Blood Pressure 124/57 L Pulse Oximetry 95 96 Oxygen Delivery Method Room Air Room Air 07/26/25 01:00 Temperature Pulse Rate Respiratory Rate Blood Pressure 124/69 Pulse Oximetry Oxygen Delivery Method MDM - Chest Pain Lab Data 07/25/25 22:30 07/25/25 22:30 Labs: Lab Results 11/12/25 11/13/25 Range/Units 22:30 00:26 WBC 6.5 (4.5-11.0) X10^3/uL RBC 4.00 (4.0-5.2) X10^6/uL Hgb 11.3 L (12.0-16.0) g/dL Hct 34.2 L (36-46) % MCV 85.4 (80-100) fL MCH 28.2 (26-34) PG MCHC 33.0 (30-36) % RDW 14.9 H (11.6-14.8) % Plt Count 238 (150-400) X10^3/uL Neut % (Auto) 57.8 (50-75) % Lymph % (Auto) 31.5 (25-40) % [place] % (Auto) 6.4 (3-14) % Eos % (Auto) 3.7 (2-4) % Baso % (Auto) 0.6 (0-2) % Neut # (Auto) 3800 (2966-6235) /uL Lymph # (Auto) 2100 (2933-3365) /uL [place] # (Auto) 400 (0-900) /uL Eos # (Auto) 200 (0-450) /uL Baso # (Auto) 0 (0-100) /uL Sodium 142 (137-145) mmol/L Potassium 3.7 (3.4-5.1) mmol/L Chloride 111 H (98-107) mmol/L Carbon Dioxide 21 L (22-32) mmol/L BUN 27 H (7-17) mg/dL Creatinine 0.97 (0.52-1.04) mg/dL Estimated GFR > 60 (>60) mL/min BUN/Creatinine Ratio 27.8 H (6-22) Glucose 103 H (70-99) mg/dL Calcium 8.5 (8.4-10.2) mg/dL Magnesium 2.1 (1.6-2.3) mg/dL Total Bilirubin 0.4 (0.2-1.3) mg/dL AST 24 (14-36) IU/L ALT 15 (<35) IU/L Alkaline Phosphatase 121 (38-126) U/L Troponin I < 0.012 < 0.012 (0.01-0.034) ng/mL NT-Pro-B Natriuret Pep 478 H (<125) pg/mL Total Protein 6.9 (6.3-8.2) g/dL Albumin 4.0 (3.5-5.0) g/dL Globulin 2.9 (1.7-4.1) g/dL Albumin/Globulin Ratio 1.4 (1.0-2.8) Lipase 113 (23-300) U/L Urine Dip Bedside Urine Glucose 1000 mg/dl Bedside Urine Bilirubin - Negative Bedside Urine Ketone - Negative Urine Specific [place] 1.010 Bedside Urine Occult Blood - Negative Bedside Urine pH 6.5 Bedside Urine Protein - Negative Bedside Urine Urobilinogen - Negative Bedside Urine Nitrite - Negative Bedside Urine Leukocytes - Negative Esterase ECG Data Attestation: I personally reviewed and interpreted this ECG as follows: Prior ECG tracings: available for review Interpretation: Normal sinus rhythm rate 66 IA interval 160 QRS [address] changes or T-wave inversions similar to prior some respiratory artifact noted. MDM Narrative Medical decision making narrative: MDM CC: Chest pain Complicating co-morbidities: Atrial fibrillation on Eliquis flecainide, renal cell carcinoma, hypothyroid, hypertension hyperlipidemia GERD kidney stones STORM Data collected from: Patient has been Medical records reviewed: PCP record also reviewed 06/29/25 Myocardial perfusion nuclear scan IMPRESSION: Low risk study. No evidence of pharmacologic induced ischemia or scar. Top normal LV size based on calculated end-diastolic volume with normal function. Differential considered: Atypical chest pain acute coronary syndrome, dissection Exam documented above, pertinent findings include: Awake alert pleasant 70-year-old female breath sounds clear no peripheral edema Lab Test results independently reviewed as above. Pertinent findings: CBC no leukocytosis no anemia CMP mild elevation chloride 111 previously was 110 creatinine 0.7 glucose 103 Troponin negative x2 Independently reviewed EKG as above Normal sinus rhythm rate 60 IA interval 160 QRS [address] changes Imaging studies independently reviewed: Chest x-ray no acute cardiopulmonary process Consultations: none Treatments: None Re-evaluations: Patient has no chest pain Discussion: Patient is a 70-year-old female history of atrial fibrillation presenting today with chest discomfort. It sounds like sharp shooting pains in her chest lasting only sec. She was seen by Cardiology this week she had a myocardial perfusion scan less than 1 month ago. She has a uncontrolled blood pressure which is known they are addressing it with Cardiology. She has no evidence of hypertensive emergency. No concern for aortic dissection. She has 2- troponins no EKGs changes this time recommend outpatient follow-up. Heart score 3 Discharge Plan Departure Patient Disposition: Home Clinical Impression: Atypical chest pain Instructions: DI for Atypical Chest Pain Activity Restrictions/Additional Instructions: *You have been diagnosed with atypical chest pain *What to do: At this time please follow-up with Cardiology in regards to your blood pressure and further evaluation *Continue to take medications as directed *Follow up with your primary care provider in 2-3 days or call [phone] *Return to ER if you should have increasing chest pain shortness of breath weakness or any new, worsening or concerning symptoms Prescriptions: No Action lidocaine 4 % adhesive patch,medicated 1 patch topical BID PRN (Reason: pain) Qty: 10 0RF Eliquis 5 mg tablet 5 mg PO BID Qty: 180 3RF levothyroxine 100 mcg tablet 100 mcg PO DAILY Qty: 90 1RF paroxetine HCl 20 mg tablet 20 mg PO DAILY Qty: 90 1RF lisinopril 40 mg tablet 40 mg PO DAILY Qty: 90 1RF omeprazole 40 mg capsule,delayed release(DR/EC) 40 mg PO DAILY Qty: 90 1RF trazodone 50 mg tablet 50 mg PO BEDTIME PRN (Reason: insomnia) Qty: 90 1RF sumatriptan succinate 50 mg tablet See Rx Instructions PO .COMPLEX Qty: 90 1RF Rx Instructions: take 1 tab at onset of headache; if no relief may repeat 1 tab after at least 2 hrs; max = 4 tabs/24 hr PO topiramate 25 mg capsule,extended release 24hr 25 mg PO DAILY Qty: 90 3RF atorvastatin 20 mg tablet 20 mg PO BEDTIME Qty: 90 3RF cholecalciferol (vitamin D3) 50 mcg (2,000 unit) capsule 50 mcg PO DAILY calcium carbonate 260 mg calcium (648 mg) tablet 260 mg PO DAILY multivit with min-folic acid [Adult Multivitamin Gummies] 200 mcg tablet,chewable PO azelastine 137 mcg (0.1 %) spray,non-aerosol 1 spray intranasal BID PRN Rx Instructions: administer into each nostril Fiber Gummies 2 gram tablet,chewable 2 g PO DAILY fluticasone propionate [Flonase Allergy Relief] 50 mcg/actuation spray,suspension 1 spray intranasal DAILY PRN Rx Instructions: administer into each nostril methocarbamol 500 mg tablet 500 mg PO BID PRN (Reason: muscle spasm) Qty: 15 0RF Referrals: Haylee Roberts DO [Primary Care Provider, Family Practice] Stand Alone Forms: Patient Portal/API
[2025-07-25 22:39] LABS: Add Manual Diff / Slide Review NO; Hematocrit 34.2 % (36-46); Hemoglobin 11.3 g/dL (12.0-16.0); Lymphocytes Absolute Auto 2100 /uL (1100-4500); Mean Corpuscular HGB Conc 33.0 % (30-36); Mean Corpuscular Hemoglobin 28.2 PG (26-34); Mean Corpuscular Volume 85.4 fL (80-100); Platelet Count 238 X10^3/uL (150-400)
[2025-07-25 22:46] VITALS: PULSE 60; RESP 24; O2SAT 96
[2025-07-25 22:50] LABS: Alanine Aminotransferase 15 IU/L (<35); Albumin 4.0 g/dL (3.5-5.0); Albumin Globulin Ratio 1.4 (1.0-2.8); Alkaline Phosphatase 121 U/L (38-126); Blood Urea Nitrogen 27 mg/dL (7-17); Calcium 8.5 mg/dL (8.4-10.2); Carbon Dioxide 21 mmol/L (22-32); Chloride 111 mmol/L (98-107); Estimated Glomerular Filt Rate > 60 mL/min (>60); Globulin 2.9 g/dL (1.7-4.1); Glucose 103 mg/dL (70-99); HEMOLYSIS < 15 (0-50); Lipase 113 U/L (23-300); Magnesium 2.1 mg/dL (1.6-2.3); Potassium 3.7 mmol/L (3.4-5.1); Sodium 142 mmol/L (137-145); Total Protein 6.9 g/dL (6.3-8.2)
[2025-07-25 23:00] VITALS: BP 178/83; PULSE 63; RESP 19; O2SAT 97
[2025-07-25 23:01] LABS: NT-proBNP (BNP-Adult 18+) 478 pg/mL (<125); Troponin I < 0.012 ng/mL (0.01-0.034)
[2025-07-26] VITALS: BP 140/67; PULSE 61; RESP 10; O2SAT 95
--- NOTE | 2025-07-26 00:24 | PC.NURSE ---
Pt lying in ED stretcher with eyes closed, resps even and not labored. No distress noted at this time. Pt rouses easily to verbal stimuli and engages appropriately with RN. Continued plan of care discussed. No requests or concerns at this time. Pt remains connected to cardiac, resp, blodd pressure, and pulse ox monitors with alarms on and audible. VS stable at this time. Call light within reach. at bedside.
[2025-07-26 00:30] VITALS: BP 124/57; PULSE 61; RESP 20; O2SAT 95
[2025-07-26 00:58] LABS: Troponin I < 0.012 ng/mL (0.01-0.034)
[2025-07-26 01:00] VITALS: BP 124/69; PULSE 61; RESP 15; O2SAT 96
== END 2025-07-26 01:23 | disposition home or self-care (01) ==
PROVIDERS: Emergency Provider Emergency Medicine; PCP Family Medicine
DX: R07.89 Other chest pain (principal); I10 Essential (primary) hypertension; Z79.01 Long term (current) use of anticoagulants
CPT/HCPCS: 36415; 71045; 80053; 81003; 83690; 83735; 83880; 84484; 85025; 93005; 99283; 99284

== ENCOUNTER → 2025-08-07 09:01 | Outpatient (CLI) | payer MEDICARE, OTHER, SELFPAY ==
--- NOTE | 2025-08-07 09:03 | DI.CT.S_ITS ---
PROCEDURE: CT ABDOMEN RENAL PROTOCOL INDICATIONS: Right renal cell carcinoma TECHNIQUE: Optional 5 mm thick noncontrast images acquired from the diaphragm to the iliac crests. After the administration of intravenous contrast, 5 mm thick images again acquired from the diaphragm to the iliac crests in the arterial and urographic phases. 5 mm thick coronal and sagittal reformats were then acquired. For radiation dose reduction, the following was used: automated exposure control, adjustment of mA and/or kV according to patient size. COMPARISON: [facility], CT, CT ABDOMEN RENAL PROTOCOL, 02/12/2025, 11:28. FINDINGS: Image quality: Diagnostic. Kidneys and Ureters: Posttreatment changes of a right renal mass embolization. Treatment bed soft tissue measures approximately 1.2 x 1.0 centimeter, not significantly changed from prior. The treatment zone no longer demonstrates enhancement . 7 millimeter stone in the right renal pelvis, without hydronephrosis. Additional small burden of bilateral punctate nonobstructing nephrolithiasis. OTHER: Lower chest: Cardiomegaly. Liver: No solid mass. Gallbladder: Absent. Biliary ducts: No biliary dilation. Pancreas: No ductal dilation. Spleen: Size is within normal limits. Adrenal Glands: No adrenal nodules. Stomach and Bowel: Normal colonic caliber, without significant wall thickening. Gastric bypass. Peritoneum: No abnormal intraperitoneal fluid. No free air. Ventral Wall: No hernia. Abdominal Nodes: No retroperitoneal or mesenteric adenopathy by size criteria. Vessels: Aorta and inferior vena cava are normal in size. 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 Bones: No aggressive osseous abnormality. IMPRESSION: Posttreatment changes of the right renal cryoablation. Similar size of the soft tissue within the treatment zone, which no longer demonstrates enhancement, which favors adequate treatment without evidence of local recurrence. 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 Nonobstructing 7 millimeter stone in the right renal pelvis, without hydronephrosis. Dictated by: Bear Park M.D. on 08/07/2025 at 10:06 Approved by: Bear Park M.D. on 08/07/2025 at 10:16
== END ==
PROVIDERS: PCP Family Medicine; Referring Provider Nurse Practitioner; Visit Provider Nurse Practitioner
DX: N28.89 Other specified disorders of kidney and ureter (principal); N20.0 Calculus of kidney; I72.8 Aneurysm of other specified arteries; I51.7 Cardiomegaly; Z90.49 Acquired absence of other specified parts of digestive tract
CPT/HCPCS: 74170; Q9967

== ENCOUNTER → 2025-08-08 08:25 | Outpatient (CLI) | payer MEDICARE, OTHER, SELFPAY ==
[2025-08-08 09:54] LABS: Blood Urea Nitrogen 31 mg/dL (7-17); Calcium 8.9 mg/dL (8.4-10.2); Carbon Dioxide 19 mmol/L (22-32); Chloride 111 mmol/L (98-107); Estimated Glomerular Filt Rate 52 mL/min (>60); Glucose 91 mg/dL (70-99); Potassium 4.1 mmol/L (3.4-5.1); Sodium 141 mmol/L (137-145)
[2025-08-08 09:55] LABS: HEMOLYSIS 63 (0-50)
== END ==
PROVIDERS: PCP Family Medicine; Referring Provider Nurse Practitioner; Visit Provider Nurse Practitioner
DX: I50.20 Unspecified systolic (congestive) heart failure (principal)
CPT/HCPCS: 36415; 80048

== ENCOUNTER → 2025-08-22 09:32 | Outpatient (CLI) | payer MEDICARE, OTHER, SELFPAY | LOC: CAR 09:33 | PROVIDERS: PCP Family Medicine; Referring Provider Family Medicine; Visit Provider Family Medicine | DX: R42 Dizziness and giddiness (principal) | CPT/HCPCS: 93242 ==